=== PATIENT | male | born 1995 | race Caucasian/White ===

== ENCOUNTER 2021-09-15 12:48 | Emergency (ER) | payer OTHER ==
[~2021-09-15] VITALS: Ht 205.7 cm; Wt 86.8 kg
[2021-09-15 13:06] VITALS: BP 140/82
== END 2021-09-15 14:58 | disposition home or self-care (01) ==
LOC: M ED 12:48
DX: R51.9 Headache, unspecified (principal); R50.9 Fever, unspecified; R06.02 Shortness of breath; U07.1 COVID-19; Z77.098 Contact with and (suspected) exposure to other hazardous, chiefly nonmedicinal, chemicals

== ENCOUNTER 2022-02-08 21:47 | Emergency (ER) | payer OTHER ==
[~2022-02-08] VITALS: Ht 175.3 cm; Wt 85.0 kg
[2022-02-08 21:48] VITALS: BP 136/79
== END 2022-02-08 23:20 | disposition left against medical advice (07) ==
LOC: M ED 21:47
DX: Z53.21 Procedure and treatment not carried out due to patient leaving prior to being seen by health care provider (principal)